=== PATIENT | male | born 1965 | race Caucasian/White ===

== ENCOUNTER 2017-05-27 17:21 | Emergency (ER) | payer OTHER ==
[2017-05-27 19:24] LABS: RED BLOOD COUNT 4.01 M/UL (4.20-5.50); WHITE BLOOD COUNT 6.2 K/UL (4.5-11.0)
[2017-05-27 19:43] LABS: BUN/CREATININE RATIO 12 (0-10)
== END 2017-05-27 21:50 | disposition home or self-care (01) ==
LOC: ER1 17:21
PROVIDERS: Emergency Medicine
DX: S16.1XXA Strain of muscle, fascia and tendon at neck level, initial encounter (principal); I10 Essential (primary) hypertension; F17.290 Nicotine dependence, other tobacco product, uncomplicated; X58.XXXA Exposure to other specified factors, initial encounter
CPT/HCPCS: 36415; 71020; 72125; 80053; 82550; 82553; 83874; 84484; 85025; 93005; 99284